=== PATIENT | male | born 1955 | race Caucasian/White ===

== ENCOUNTER → 2024-05-12 14:40 | Outpatient (REF) | payer MEDICARE, OTHER, SELFPAY | LOC: RCS 14:40 | PROVIDERS: ATTENDING PHYSICIAN Otolaryngology; FAMILY PHYSICIAN Student in an Organized Health Care Education/Training Program | DX: R09.81 Nasal congestion (principal); J32.4 Chronic pansinusitis; J34.2 Deviated nasal septum | CPT/HCPCS: 93005 ==

== ENCOUNTER → 2024-05-30 16:30 | Outpatient (REF) | payer MEDICARE, OTHER, SELFPAY | LOC: CLAB 16:30 | PROVIDERS: ATTENDING PHYSICIAN Otolaryngology | DX: J32.0 Chronic maxillary sinusitis (principal); J34.2 Deviated nasal septum | CPT/HCPCS: 88304; 88311 ==